=== PATIENT | female | born 1975 | race Caucasian/White ===

== ENCOUNTER 2018-08-15 06:46 | Emergency (ER) | payer OTHER ==
[~2018-08-15] VITALS: Ht 160 cm; Wt 88.9 kg
--- NOTE | 2018-08-15 07:00 | PHYS DOC ---
Past Medical History Past Medical History: IBS Past Surgical History: Cholecystectomy, Hysterectomy Adult General Chief Complaint Chief Complaint: ABDOMINAL PAIN HPI HPI Patient is a 43 year old female presented to ER today for evaluation of abdominal pain. Patient was recently admitted at [facility] 2 weeks ago for 4 days due to the same problem, she had a complete workup including upper GI, colonoscopy, CT scan of her abdomen and pelvic, was seen by GI specialist , was diagnosed with IBS. Patient was sent home with medication for IBS INCLUDED XIFAXAN AND BENTYL. Patient started having right flank pain, right lower abdominal pain, burning with urination since Wednesday. Review of Systems Review of Systems Constitutional: Denies fever or chills [] Eyes: Denies change in visual acuity, redness, or eye pain [] HENT: Denies nasal congestion or sore throat [] Respiratory: Denies cough or shortness of breath [] Cardiovascular: No additional information not addressed in HPI [] GI: Positive for abdominal pain, NO nausea, vomiting, bloody stools or diarrhea [] : Positive for dysuria, no hematuria [] Musculoskeletal: Denies back pain or joint pain [] Integument: Denies rash or skin lesions [] Neurologic: Denies headache, focal weakness or sensory changes [] Endocrine: Denies polyuria or polydipsia [] All other systems were reviewed and found to be within normal limits, except as documented in this note. Current Medications Current Medications Current Medications Medications (Trade) Dose Ordered Sig/Lilly Start Time Stop Time Status Last Admin Dose Admin Info (CONTRAST GIVEN -- Rx MONITORING) 1 each PRN DAILY PRN 08/15/18 08:30 08/17/18 08:29 Iohexol (Omnipaque 300 Mg/ml) 75 ml 1X ONCE 08/15/18 08:30 08/15/18 08:31 DC Ketorolac Tromethamine (Toradol 30mg Vial) 30 mg 1X ONCE 08/15/18 07:45 08/15/18 07:46 DC 08/15/18 07:46 30 MG Allergies Allergies Allergies Coded Allergies Type Severity Reaction Last Updated Verified No Known Drug Allergies 08/15/18 No Physical Exam Physical Exam Constitutional: Well developed, well nourished, no acute distress, non-toxic appearance. [] HENT: Normocephalic, atraumatic, bilateral external ears normal, oropharynx moist, no oral exudates, nose normal. [] Eyes: PERRLA, EOMI, conjunctiva normal, no discharge. [] Neck: Normal range of motion, no tenderness, supple, no stridor. [] Cardiovascular:Heart rate regular rhythm, no murmur [] Lungs & Thorax: Bilateral breath sounds clear to auscultation [] Abdomen: Bowel sounds normal, soft, There is tenderness to palpation in RIGHT FLANK, RLQ, NO GUARDING OR REBOUND, no masses, no pulsatile masses. [] Skin: Warm, dry, no erythema, no rash. [] Back: No tenderness, no CVA tenderness. [] Extremities: No tenderness, no cyanosis, no clubbing, ROM intact, no edema. [] Neurologic: Alert and oriented X 3, normal motor function, normal sensory function, no focal deficits noted. [] Psychologic: Affect normal, judgement normal, mood normal. [] Current Patient Data Vital Signs Vital Signs Date Time Temp Pulse Resp B/P (MAP) Pulse Ox O2 Delivery O2 Flow Rate FiO2 08/15/18 09:30 56 14 122/79 (93) 96 Room Air 08/15/18 06:56 98.3 98.3 Lab Values Laboratory Tests Test 08/15/18 07:12 White Blood Count 4.9 x10^3/uL (4.0-11.0) Red Blood Count 4.29 x10^6/uL (3.50-5.40) Hemoglobin 13.8 g/dL (12.0-15.5) Hematocrit 39.4 % (36.0-47.0) Mean Corpuscular Volume 92 fL (79-100) Mean Corpuscular Hemoglobin 32 pg (25-35) Mean Corpuscular Hemoglobin Concent 35 g/dL (31-37) Red Cell Distribution Width 12.8 % (11.5-14.5) Platelet Count 267 x10^3/uL (140-400) Neutrophils (%) (Auto) 38 % (31-73) Lymphocytes (%) (Auto) 48 % (24-48) Monocytes (%) (Auto) 8 % (0-9) Eosinophils (%) (Auto) 6 % (0-3) H Basophils (%) (Auto) 1 % (0-3) Neutrophils # (Auto) 1.9 x10^3uL (1.8-7.7) Lymphocytes # (Auto) 2.3 x10^3/uL (1.0-4.8) Monocytes # (Auto) 0.4 x10^3/uL (0.0-1.1) Eosinophils # (Auto) 0.3 x10^3/uL (0.0-0.7) Basophils # (Auto) 0.0 x10^3/uL (0.0-0.2) Urine Collection Type Void Urine Color Yellow Urine Clarity Clear Urine pH 7.5 Urine Specific [place] 1.015 Urine Protein Negative mg/dL (NEG-TRACE) Urine Glucose (UA) Negative mg/dL (NEG) Urine Ketones (Stick) Negative mg/dL (NEG) Urine Blood Negative (NEG) Urine Nitrite Negative (NEG) Urine Bilirubin Negative (NEG) Urine Urobilinogen Dipstick 0.2 mg/dL (0.2 mg/dL) Urine Leukocyte Esterase Small (NEG) Urine RBC Occ /HPF (0-2) Urine WBC 5-10 /HPF (0-4) Urine Squamous Epithelial Cells Mod /LPF Urine Bacteria Few /HPF (0-FEW) Sodium Level 142 mmol/L (136-145) Potassium Level 3.4 mmol/L (3.5-5.1) L Chloride Level 105 mmol/L (98-107) Carbon Dioxide Level 27 mmol/L (21-32) Anion Gap 10 (6-14) Blood Urea Nitrogen 5 mg/dL (7-20) L Creatinine 0.6 mg/dL (0.6-1.0) Estimated GFR (Cockcroft-Gault) 109.6 BUN/Creatinine Ratio 8 (6-20) Glucose Level 93 mg/dL (70-99) Calcium Level 9.2 mg/dL (8.5-10.1) Total Bilirubin 0.4 mg/dL (0.2-1.0) Aspartate Amino Transferase (AST) 26 U/L (15-37) Alanine Aminotransferase (ALT) 42 U/L (14-59) Alkaline Phosphatase 95 U/L (46-116) Total Protein 6.8 g/dL (6.4-8.2) Albumin 3.5 g/dL (3.4-5.0) Albumin/Globulin Ratio 1.1 (1.0-1.7) Lipase 101 U/L (73-393) Laboratory Tests 08/15/18 07:12 Laboratory Tests 08/15/18 07:12 EKG EKG [] Radiology/Procedures Radiology/Procedures [][facility] [address] [place] [address] IMAGING REPORT Signed PATIENT: SCOTTIE WAGONER ACCOUNT: [id number] : 1975 LOCATION: ER AGE: 43 SEX: F EXAM STATUS: REG ER ORD. PHYSICIAN: JACK GOMEZ DO REASON: abdominal pain PROCEDURE: CT ABD PELV W/ IV CONTRST ONLY EXAM: CT Abdomen and Pelvis with IV contrast CLINICAL HISTORY: Abdominal pain. COMPARISON: none TECHNIQUE: Helical CT of the abdomen and pelvis was performed following the administration of intravenous contrast. Axial, coronal and sagittal reformatted images were generated. PQRS compliance statement - One or more of the following individualized dose reduction techniques were utilized for this study: 1. Automated exposure control 2. Adjustment of the mA and/or kV according to patient size 3. Use of iterative reconstruction technique FINDINGS: Lower chest: Subpleural linear reticular opacities in the lower lobes and middle lobe likely scarring/atelectasis. Abdomen and Pelvis: No focal liver lesion. Hepatic hypoattenuation may be seen with hepatic steatosis. Liver is borderline enlarged. Accounting for postcholecystectomy change, no biliary ductal dilatation. Spleen measures 14 cm in AP dimension.. Adrenal glands are normal. Pancreas is normal. Symmetric nephrograms. No focal renal lesion. No hydronephrosis. No hydroureter. Bladder is unremarkable. No abnormal small or large bowel dilatation. Appendix is normal. No evidence for bowel obstruction. Moderate colonic stool content is seen. Symmetric nephrograms. No focal renal lesion. No hydronephrosis. No hydroureter. No abdominal or pelvic ascites. No abdominal or pelvic lymphadenopathy. Aorta is normal in caliber with intermittent atherosclerotic calcifications. Osseous structures are grossly unremarkable. IMPRESSION: 1. Hepatomegaly and hepatic steatosis. 2. Mild splenomegaly. 3. Gallbladder is normal. No biliary ductal dilatation. 4. No evidence of bowel obstruction. 5. Appendix is normal. Electronically signed by: Kervin Carr MD (08/15/2018 9:09 AM) [id number] DICTATED and SIGNED BY: KERVIN CARR MD DATE: 08/15/1809 Course & Med Decision Making Course & Med Decision Making Pertinent Labs and Imaging studies reviewed. (See chart for details) [] Dragon Disclaimer Dragon Disclaimer This electronic medical record was generated, in whole or in part, using a voice recognition dictation system. Departure Departure Impression: Primary Impression: Abdominal pain Additional Impression: UTI (urinary tract infection) Disposition: HOME, SELF-CARE Condition: STABLE Patient Instructions: Abdominal Pain, Urinary Tract Infection Scripts Cephalexin (CEPHALEXIN) 500 Mg Tablet 1 TAB PO QID for 5 Days, #20 TAB Prov: JACK GOMEZ DO 08/15/18 Problem Qualifiers JACK GOMEZ DO Aug 15, 2018 07:00
[2018-08-15 07:19] LABS: BASO % 1 % (0-3); EOS # 0.3 x10^3/uL (0.0-0.7); EOS % 6 % (0-3); HEMATOCRIT 39.4 % (36.0-47.0); HEMOGLOBIN 13.8 g/dL (12.0-15.5); LYMPH # 2.3 x10^3/uL (1.0-4.8); LYMPH % 48 % (24-48); MEAN CORPUSCULAR HEMOGLOBIN 32 pg (25-35); MEAN CORPUSCULAR HGB CONC 35 g/dL (31-37); MEAN CORPUSCULAR VOLUME 92 fL (79-100); MONO # 0.4 x10^3/uL (0.0-1.1); MONO % 8 % (0-9); NEUT # 1.9 x10^3uL (1.8-7.7); NEUT % 38 % (31-73); PLATELET COUNT 267 x10^3/uL (140-400); RED BLOOD COUNT 4.29 x10^6/uL (3.50-5.40); RED CELL DISTRIBUTION WIDTH 12.8 % (11.5-14.5); WHITE BLOOD COUNT 4.9 x10^3/uL (4.0-11.0)
[2018-08-15 07:20] LABS: BILIRUBIN,URINE NEGATIVE (NEG); CLARITY,URINE CLEAR; COLOR,URINE YELLOW; NITRITE,URINE NEGATIVE (NEG); PH,URINE 7.5; PROTEIN,URINE NEGATIVE (NEG-TRACE); UROBILINOGEN,URINE 0.2 mg/dL (0.2 mg/dL)
[2018-08-15 07:30] LABS: SQUAMOUS EPITHELIAL CELL,UR MOD /LPF
[2018-08-15 07:31] LABS: BACTERIA,URINE FEW /HPF (0-FEW); RBC,URINE OCC /HPF (0-2)
[2018-08-15] MEDS ORDERED: KETOROLAC 30 MG/ML VIAL. IV ONE (07:45)
[2018-08-15 07:56] LABS: CALCIUM 9.2 mg/dL (8.5-10.1); CREATININE 0.6 mg/dL (0.6-1.0); GFR 109.6; POTASSIUM 3.4 mmol/L (3.5-5.1)
[2018-08-15 08:03] LABS: ALBUMIN 3.5 g/dL (3.4-5.0); ALBUMIN/GLOBULIN RATIO 1.1 (1.0-1.7); TOTAL BILIRUBIN 0.4 mg/dL (0.2-1.0); TOTAL PROTEIN 6.8 g/dL (6.4-8.2)
[2018-08-15] MEDS ORDERED: CONTRAST GIVEN. MC PRN (08:30)
[2018-08-15] MEDS ORDERED: IOHEXOL 300 MG/ML 100ML VIAL. IV ONE (08:30)
--- NOTE | 2018-08-15 09:12 | RAD ---
EXAM: CT Abdomen and Pelvis with IV contrast CLINICAL HISTORY: Abdominal pain. COMPARISON: none TECHNIQUE: Helical CT of the abdomen and pelvis was performed following the administration of intravenous contrast. Axial, coronal and sagittal reformatted images were generated. PQRS compliance statement - One or more of the following individualized dose reduction techniques were utilized for this study: 1. Automated exposure control 2. Adjustment of the mA and/or kV according to patient size 3. Use of iterative reconstruction technique FINDINGS: Lower chest: Subpleural linear reticular opacities in the lower lobes and middle lobe likely scarring/atelectasis. Abdomen and Pelvis: No focal liver lesion. Hepatic hypoattenuation may be seen with hepatic steatosis. Liver is borderline enlarged. Accounting for postcholecystectomy change, no biliary ductal dilatation. Spleen measures 14 cm in AP dimension.. Adrenal glands are normal. Pancreas is normal. Symmetric nephrograms. No focal renal lesion. No hydronephrosis. No hydroureter. Bladder is unremarkable. No abnormal small or large bowel dilatation. Appendix is normal. No evidence for bowel obstruction. Moderate colonic stool content is seen. Symmetric nephrograms. No focal renal lesion. No hydronephrosis. No hydroureter. No abdominal or pelvic ascites. No abdominal or pelvic lymphadenopathy. Aorta is normal in caliber with intermittent atherosclerotic calcifications. Osseous structures are grossly unremarkable. IMPRESSION: 1. Hepatomegaly and hepatic steatosis. 2. Mild splenomegaly. 3. Gallbladder is normal. No biliary ductal dilatation. 4. No evidence of bowel obstruction. 5. Appendix is normal. Electronically signed by: Kervin Carr MD (08/15/2018 9:09 AM) [id number]
[2018-08-15] MEDS ORDERED: CEPH500T PO (09:52)
[2018-08-15 10:00] VITALS: BP 131/82
[2018-08-15] MEDS ORDERED: cefTRIAXone IV Push 1 GM VIAL. IVP ONE (10:00)
== END 2018-08-15 10:35 | disposition home or self-care (01) ==
LOC: ER 06:46
DX: N39.0 Urinary tract infection, site not specified (principal); K58.9 Irritable bowel syndrome, unspecified; R16.2 Hepatomegaly with splenomegaly, not elsewhere classified; K76.0 Fatty (change of) liver, not elsewhere classified; Z90.49 Acquired absence of other specified parts of digestive tract; Z90.710 Acquired absence of both cervix and uterus
CPT/HCPCS: 36415; 74177; 80053; 81001; 83690; 85025; 87086; 96374; 96375; 99285; J0696; J1885; 87186